=== PATIENT | male | born 1940 | race Caucasian/White ===

== ENCOUNTER 2016-09-17 12:15 | Emergency (ER) | payer MEDICARE, OTHER ==
[2016-09-17 12:29] VITALS: TEMP 98.5; BMI 28.5
[2016-09-17] MEDS ORDERED: BUBBLE GUM ENEMA 480 ML ENEMA PR ONE (14:00)
--- NOTE | 2016-09-17 14:05 | EDPRACDOC ---
- General Information Chief Complaint: Generalized Weakness Stated Complaint: CONSTIPATION Time Seen by Provider: 09/17/16 13:29 Information Source: Patient Mode Of Arrival: Ambulance Home Medications: Home Medications Azithromycin [Zithromax] 0 mg PO DAILY #6 tablet 12/06/13 Hydrocodone Bit/Homatropine [Hycodan Syrup] 5 ml PO Q6 PRN #120 syrup 12/06/13 Allergies/Adverse Reactions: Allergies Allergy/AdvReac Type Severity Reaction Status Date / Time ciprofloxacin [From Cipro] Allergy Unknown Unknown/See Verified 12/06/13 17:26 Comments ciprofloxacin HCl Allergy Unknown Unknown/See Verified 12/06/13 17:26 [From Cipro] Comments BAY Inhibitors Allergy See Verified 12/06/13 17:26 Comments ARB-Angiotensin Receptor Allergy See Verified 12/06/13 17:27 Antagonist Comments - History of Present Illness Onset: 3 days ED Past Medical History - Patient Medical History Cardiac History: Reports: Coronary Artery Disease, Hypertension, Congestive Heart Failure, CABG, Hypercholesterolemia Surgical History: Reports: CABG - Physical Exam Last recorded Vital Signs: Last Vital Signs Temp 98.5 F 09/17/16 12:29 Pulse 80 09/17/16 12:29 Resp 18 09/17/16 12:29 BP 150/78 09/17/16 12:29 Pulse Ox 94 09/17/16 12:29 Oxygen Pulse Oxygen Saturation 94 O2 Device Room Air Oxygen Flow Rate Fraction of Inspired Oxygen ( FIO2) - Departure Instructions: Weakness (General)
--- NOTE | 2016-09-17 14:06 | EDPRACDOC ---
ED Rectal & Constipation Pain - General Information Chief Complaint: Generalized Weakness Information Source: Patient Mode of Arrival:: Ambulance - History of Present Illness Onset: 3 DAYS Symptoms started: Reports: Spontaneous Location: Reports: Rectum Symptoms: Reports: Pain Due To: Reports: Constipation History Of: Reports: Constipation Severity:: Reports: Mild Stool: Reports: Hard Worsens: Reports: Nothing Improves: Reports: Nothing Associated Sign & Symptoms: Reports: None - Other History Other History: PT REPORTS THAT HE'S BEEN CONSTIPATED FOR 3 DAYS. HE TOOK MIRALAX YESTERDAY, BUT IT DID NOT HELP. 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 MOONEY AND DR. CHOPRA. <Silvana Hobbs - Last Filed: 09/17/16 15:15> <Anil Romero - Last Filed: 09/17/16 17:00> - General Information Home Medications: Home Medications Amlodipine [Norvasc] 10 mg PO DAILY 09/17/16 Atorvastatin Calcium [Lipitor] 10 mg PO QHS 09/17/16 Clonazepam 3 mg PO QHS 09/17/16 Fleet Enema 4.5 oz [place] BID #6 enema 09/17/16 Gabapentin 300 mg PO QHS 09/17/16 Peg 3350/Na Sulf,Bicarb,Cl/KCl [Colyte with Flavor Packets] 240 ml PO . PRN 2 Days 09/17/16 Sulfamethoxazole/Trimethoprim [Bactrim Ds Tablet] 1 tab PO BID #20 tab 09/17/16 Allergies/Adverse Reactions: Allergies Allergy/AdvReac Type Severity Reaction Status Date / Time ciprofloxacin [From Cipro] Allergy Unknown Unknown/See Verified 12/06/13 17:26 Comments ciprofloxacin HCl Allergy Unknown Unknown/See Verified 12/06/13 17:26 [From Cipro] Comments BAY Inhibitors Allergy See Verified 12/06/13 17:26 Comments ARB-Angiotensin Receptor Allergy See Verified 12/06/13 17:27 Antagonist Comments NSAIDS (Non-Steroidal Allergy See Verified 09/17/16 14:53 Anti-Inflamma Comments polyethylene glycol 3350 Allergy See Verified 09/17/16 14:53 [From Miralax] Comments - Treatment Prior to ED Arrival Reported Medications/Treatment ADMISSION NURSE COORDINATOR EMS Treatment BLS IV No <Silvana Hobbs - Last Filed: 09/17/16 15:15> - Treatment Prior to ED Arrival Reported Medications/Treatment ADMISSION NURSE COORDINATOR EMS Treatment BLS IV No <Anil Romero - Last Filed: 09/17/16 17:00> ED Past Medical History - Patient Medical History Cardiac History: Reports: Coronary Artery Disease, Hypertension, Congestive Heart Failure, CABG, Hypercholesterolemia Surgical History: Reports: CABG, Other (VALVE REPLACEMENT) - Social Medical History Smoking Status: Never smoker (F) ETOH: None Substance Abuse: None Lives In: Home <Silvana Hobbs - Last Filed: 09/17/16 15:15> EDM Review of Systems - Review of Systems ROS Negative Except as Marked: Yes All systems reviewed and were negative except as marked Gastrointestinal: Constipation <Silvana Hobbs - Last Filed: 09/17/16 15:15> - Physical Exam Constitutional: Alert (Awake), No apparent distress Oriented to: Time, Person, Place Last recorded Vital Signs: Last Vital Signs Temp 98.5 F 09/17/16 12:29 Pulse 80 09/17/16 12:29 Resp 18 09/17/16 12:29 BP 150/78 09/17/16 12:29 Pulse Ox 94 09/17/16 12:29 Oxygen Pulse Oxygen Saturation 94 O2 Device Room Air Oxygen Flow Rate Fraction of Inspired Oxygen ( FIO2) - HEENT Head: Normal ( normocephalic) Eye Exam: Normal (PERRL, EOMI, Sclera white) Oropharynx: Normal (Pharynx:Moist without exudate,Gums-no swelling) ENT EAC: Normal TMJ: Normal Nose: No Symptoms Reported (septum midline) Neck: Normal (FROM, trachea at midline) - Respiratory/Cardiovascular Respiratory: Normal - CTA (BBS clear to auscultation without adventitious sounds ) Cardiovascular: Normal (RRR without murmur, gallop or rub), Systolic murmur - GI Auscultation: Normal (NABS) Palpation: Normal (Soft,No rebound or guarding, non distended) Tenderness: Non tender Mehta's Sign: Negative - Musculoskeletal Back: Normal (Non-Tender) Extremities: Normal (Normal tone, Pulses 2+ No cyanosis or edema, FROM) Musculoskeletal Comment: KYPHOSIS - Integumentary Skin: Normal, Warm, Dry Lymphatics: Normal (no adenopathy) - Neurologic Memory Impaired: Normal Motor Function: Normal (Normal tone, Pulses 2+ No cyanosis or edema, FROM) Cranial Nerve: Normal (CN II-X11 intact sensation, strength 5/5) Cerebellar: Normal Mood Description: Normal Thought: Coherent Perception: Normal <Silvana Hobbs - Last Filed: 09/17/16 15:15> - Physical Exam Last recorded Vital Signs: Last Vital Signs Temp 98.5 F 09/17/16 12:29 Pulse 59 L 09/17/16 14:15 Resp 18 09/17/16 14:15 BP 169/76 09/17/16 14:15 Pulse Ox 96 09/17/16 14:15 Oxygen Pulse Oxygen Saturation 96 O2 Device Room Air Oxygen Flow Rate Fraction of Inspired Oxygen ( FIO2) <Anil Romero - Last Filed: 09/17/16 17:00> - Results 09/17/16 14:40 09/17/16 14:40 - Diagnostic Imaging Abdomen Image interpreted by: Radiologist Multiple air-fluid levels throughout the abdomen without appreciable bowel dilatation. Suspect early ileus or enteritis. Early obstruction is possible but felt to be less likely. No free air apparent. No lung edema or consolidation. <Silvana Hobbs - Last Filed: 09/17/16 15:15> - Results 09/17/16 14:40 09/17/16 14:40 WBC 5.7 xk/uL (3.8-10.8) 09/17/16 14:40 RBC 4.67 xM/uL (4.70-6.10) L 09/17/16 14:40 Hgb 15.0 g/dL (14.0-18.0) 09/17/16 14:40 Hct 44.8 % (42-52) 09/17/16 14:40 MCV 96 fL (80-94) H 09/17/16 14:40 MCH 32.0 pg (27-32) 09/17/16 14:40 MCHC 33.4 g/dl (33-36) 09/17/16 14:40 RDW 13.6 % (11.5-14.5) 09/17/16 14:40 Plt Count 95 xk/uL (130-400) L 09/17/16 14:40 MPV 8.5 fL (7.4-10.4) 09/17/16 14:40 Neut % (Auto) 52.8 % (45-76) 09/17/16 14:40 Lymph % (Auto) 32.1 % (17-44) 09/17/16 14:40 [place] % (Auto) 11.0 % (3-10) H 09/17/16 14:40 Eos % (Auto) 1.9 % (0-5) 09/17/16 14:40 Baso % (Auto) 2.2 % (0-2) H 09/17/16 14:40 Absolute Neuts (auto) 2.96 xk/uL (1.7-8.2) 09/17/16 14:40 Absolute Lymphs (auto) 1.82 xk/uL (0.65-4.75) 09/17/16 14:40 Sodium 139 mEq/L (137-146) 09/17/16 14:40 Potassium 4.4 mEq/L (3.5-5.1) 09/17/16 14:40 Chloride 101 mEq/L (98-107) 09/17/16 14:40 Carbon Dioxide 25 mMOL/L (22-33) 09/17/16 14:40 Anion Gap 17 mEq/L (8-16) H 09/17/16 14:40 BUN 11 MG/DL (9-20) 09/17/16 14:40 Creatinine 1.20 MG/DL (0.66-1.25) 09/17/16 14:40 Estimated GFR (MDRD) 59 mL/min (>=60) L 09/17/16 14:40 Glucose 102 MG/DL (70-99) H 09/17/16 14:40 Calculated Osmolality 267 MOs/Kg (270-290) L 09/17/16 14:40 Calcium 9.0 MG/DL (8.4-10.2) 09/17/16 14:40 Total Bilirubin 0.7 MG/DL (0.2-1.3) 09/17/16 14:40 AST 31 IU/L (17-59) 09/17/16 14:40 ALT 29 IU/L (21-72) 09/17/16 14:40 Alkaline Phosphatase 74 IU/L (50-160) 09/17/16 14:40 Total Protein 8.2 G/DL (6.3-8.2) 09/17/16 14:40 Albumin 4.4 G/DL (3.5-5.0) 09/17/16 14:40 Urine Color Yellow 09/17/16 16:00 Urine Clarity Sl cldy 09/17/16 16:00 Urine pH 6.0 (5.0-8.0) 09/17/16 16:00 Ur Specific [place] 1.005 (1.003-1.035) 09/17/16 16:00 Urine Protein Neg (NEG/TRACE) 09/17/16 16:00 Urine Glucose (UA) Neg (NEGATIVE) 09/17/16 16:00 Urine Ketones Neg (NEGATIVE) 09/17/16 16:00 Urine Occult Blood Neg (NEG/TRACE) 09/17/16 16:00 Urine Nitrite Neg (NEGATIVE) 09/17/16 16:00 Urine Bilirubin Neg (NEGATIVE) 09/17/16 16:00 Urine Urobilinogen <2.0 MG/DL (0-1) 09/17/16 16:00 Ur Leukocyte Esterase 2+ (NEGATIVE) H 09/17/16 16:00 Urine RBC 0-2 (0-2) 09/17/16 16:00 Urine WBC Tntc (0-2) H 09/17/16 16:00 Urine WBC Clumps Present (NONE) H 09/17/16 16:00 Urine Bacteria 1+ (NEG/FEW) H 09/17/16 16:00 Lab Results 09/17/16 09/17/16 09/17/16 16:00 14:40 14:40 WBC 5.7 RBC 4.67 L Hgb 15.0 Hct 44.8 MCV 96 H MCH 32.0 MCHC 33.4 RDW 13.6 Plt Count 95 L MPV 8.5 Neut % (Auto) 52.8 Lymph % (Auto) 32.1 [place] % (Auto) 11.0 H Eos % (Auto) 1.9 Baso % (Auto) 2.2 H Absolute Neuts (auto) 2.96 Absolute Lymphs (auto) 1.82 Sodium 139 Potassium 4.4 Chloride 101 Carbon Dioxide 25 Anion Gap 17 H BUN 11 Creatinine 1.20 Estimated GFR (MDRD) 59 L Glucose 102 H Calculated Osmolality 267 L Calcium 9.0 Total Bilirubin 0.7 AST 31 ALT 29 Alkaline Phosphatase 74 Total Protein 8.2 Albumin 4.4 Urine Color Yellow Urine Clarity Sl cldy Urine pH 6.0 Ur Specific [place] 1.005 Urine Protein Neg Urine Glucose (UA) Neg Urine Ketones Neg Urine Occult Blood Neg Urine Nitrite Neg Urine Bilirubin Neg Urine Urobilinogen <2.0 Ur Leukocyte Esterase 2+ H Urine RBC 0-2 Urine WBC Tntc H Urine WBC Clumps Present H Urine Bacteria 1+ H <Anil Romero - Last Filed: 09/17/16 17:00> <Silvana Hobbs - Last Filed: 09/17/16 15:15> Decision Time to Discharge: 16:28 - Departure Yes I personally saw and evaluated the patient. Disposition: Home Education/Counseling Given To: Patient Education/Counseling Given Regarding: Diagnosis, Treatment, Prognosis, Follow Up <Anil Romero - Last Filed: 09/17/16 17:00> - Departure Condition: Good Final Diagnosis: Attacks of weakness UTI (urinary tract infection) Qualifiers: Urinary tract infection type: acute cystitis Hematuria presence: without hematuria Qualified Code(s): N30.00 - Acute cystitis without hematuria Constipation Qualifiers: Constipation type: other constipation type Qualified Code(s): K59.09 - Other constipation Instructions: Weakness (General), Urinary Tract Infection in Men (ED), Dysuria Referrals: None,No Provider [Primary Care Provider] - One Week Serafin Chopra MD [Staff Physician] - One Week Prescriptions: Fleet Enema 4.5 oz [place] BID #6 enema Peg 3350/Na Sulf,Bicarb,Cl/KCl [Colyte with Flavor Packets] 240 ml PO . PRN 2 Days PRN Reason: Constipation Sulfamethoxazole/Trimethoprim [Bactrim Ds Tablet] 1 tab PO BID #20 tab
--- NOTE | 2016-09-17 14:13 | DIRPT ---
CLINICAL DATA: Three-day history of constipation EXAM: DG ABDOMEN ACUTE W/ 1V CHEST COMPARISON: None. FINDINGS: PA chest: Lungs are clear. Heart size and pulmonary vascularity are normal. No adenopathy. Patient is status post coronary artery bypass grafting. There is an apparent aortic valve replacement as well. Supine and upright abdomen: There is moderate stool in the colon. There is no bowel dilatation. There are scattered air-fluid levels throughout the abdomen. No free air is apparent. There is degenerative change in the lumbar spine. There are multiple apparent phleboliths in the pelvis. IMPRESSION: Multiple air-fluid levels throughout the abdomen without appreciable bowel dilatation. Suspect early ileus or enteritis. Early obstruction is possible but felt to be less likely. No free air apparent. No lung edema or consolidation. Electronically Signed By: Art Collins III, M.D. On: 09/17/2016 14:11
[2016-09-17 14:49] LABS: AUTOMATED BASOPHIL 2.2 % (0-2); AUTOMATED EOSINOPHIL 1.9 % (0-5); AUTOMATED LYMPH 32.1 % (17-44); AUTOMATED NEUTROPHIL 52.8 % (45-76); MPV 8.5 fL (7.4-10.4)
[2016-09-17 14:57] LABS: BLOOD UREA NITROGEN 11 MG/DL (9-20); CALCULATED OSMOLALITY 267 MOs/Kg (270-290); CHLORIDE 101 mEq/L (98-107); GLUCOSE 102 MG/DL (70-99); SODIUM LEVEL 139 mEq/L (137-146); TOTAL PROTEIN 8.2 G/DL (6.3-8.2)
[2016-09-17] MEDS ORDERED: Pharmacy Review for Metformin - IV Contrast Given SCH (15:00)
--- NOTE | 2016-09-17 16:19 | DIRPT ---
CLINICAL DATA: Abdominal pain, constipation EXAM: CT ABDOMEN AND PELVIS WITH CONTRAST TECHNIQUE: Multidetector CT imaging of the abdomen and pelvis was performed using the standard protocol following bolus administration of intravenous contrast. CONTRAST: 100 cc Isovue 370 COMPARISON: 09/17/2016 acute abdominal series FINDINGS: Lower chest: Patient is status post TAVR and coronary bypass. Normal heart size. No pericardial or pleural effusion. Lower thoracic degenerative change noted. Lung bases remain clear. Hepatobiliary: No masses or other significant abnormality. Pancreas: No mass, inflammatory changes, or other significant abnormality. Spleen: Within normal limits in size and appearance. Adrenals/Urinary Tract: No masses identified. No evidence of hydronephrosis. Stomach/Bowel: Exam of the bowel is limited without oral contrast. Negative for bowel obstruction, significant dilatation, or ileus. No abnormal fluid collection, hemorrhage, or abscess. No free air. Vascular/Lymphatic: Abdominal aortic atherosclerosis noted without aneurysm or occlusive process. No retroperitoneal abnormality or hemorrhage. No adenopathy. Reproductive: No mass or other significant abnormality. Other: Bladder wall demonstrates multiple small outpouchings, more on the right, images 76 through 83. Suspect several small bladder diverticula. Musculoskeletal: Diffuse degenerative changes of the spine. Lower lumbar marked facet arthropathy. No acute osseous finding. Grade 1 anterolisthesis of L4 on L5, suspect related to facet arthropathy. Chronic appearing T9 compression fracture. IMPRESSION: No acute intra-abdominal or pelvic finding. Negative for bowel obstruction or free air. Aortoiliac atherosclerosis without aneurysm Suspect numerous small bladder diverticula Other chronic and postoperative findings as above. Electronically Signed By: Juan Alberto Talamantes M.D. On: 09/17/2016 16:17
[2016-09-17 16:23] LABS: LEUKOCYTES/URINE 2+ (NEGATIVE); NITRITE/URINE NEG (NEGATIVE); RBC/URINE 0-2 (0-2); URINE OCCULT BLOOD NEG (NEG/TRACE); WBC/URINE TNTC (0-2)
[2016-09-17] MEDS ORDERED: CEFTRIAXONE 1 GM in D5W 100 ML IV ONE (16:30)
[2016-09-17 17:38] VITALS: BP 177/79; PULSE 63
== END 2016-09-17 17:30 | disposition home or self-care (01) ==
LOC: ED 12:15
DX: K59.00 Constipation, unspecified (principal)
CPT/HCPCS: 36415; 74022; 74177; 80053; 81001; 85025; 96365; 99284; A9270; A9698; J0696; J7060; J3490

== ENCOUNTER 2016-09-29 06:37 | Emergency (ER) | payer MEDICARE, OTHER ==
[2016-09-29 06:37] VITALS: BMI 28.5
[2016-09-29] MEDS ORDERED: MAGNESIUM CITRATE 10 OZ BOTTLE PO ONE (07:25)
[2016-09-29 07:30] VITALS: TEMP 97.9
--- NOTE | 2016-09-29 07:35 | EDPRACDOC ---
- General Information Stated Complaint: CONSTIPATION Time Seen by Provider: 09/29/16 07:25 Information Source: Patient Mode of Arrival: Car Home Medications: Home Medications Amlodipine [Norvasc] 10 mg PO DAILY 09/17/16 Atorvastatin Calcium [Lipitor] 10 mg PO QHS 09/17/16 Clonazepam 3 mg PO QHS 09/17/16 Fleet Enema 4.5 oz [place] BID #6 enema 09/17/16 Gabapentin 300 mg PO QHS 09/17/16 Peg 3350/Na Sulf,Bicarb,Cl/KCl [Colyte with Flavor Packets] 240 ml PO . PRN 2 Days 09/17/16 Sulfamethoxazole/Trimethoprim [Bactrim Ds Tablet] 1 tab PO BID #20 tab 09/17/16 Sulfamethoxazole/Trimethoprim [Bactrim Ds Tablet] 1 tab PO BID #20 tab 09/29/16 Allergies/Adverse Reactions: Allergies Allergy/AdvReac Type Severity Reaction Status Date / Time ciprofloxacin [From Cipro] Allergy Unknown Unknown/See Verified 12/06/13 17:26 Comments ciprofloxacin HCl Allergy Unknown Unknown/See Verified 12/06/13 17:26 [From Cipro] Comments BAY Inhibitors Allergy See Verified 12/06/13 17:26 Comments ARB-Angiotensin Receptor Allergy See Verified 12/06/13 17:27 Antagonist Comments NSAIDS (Non-Steroidal Allergy See Verified 09/17/16 14:53 Anti-Inflamma Comments polyethylene glycol 3350 Allergy See Verified 09/17/16 14:53 [From Miralax] Comments - History of Present Illness HPI: PT PRESENTS WITH CONSTIPATION X 3 WEEKS. PT STATES HE INTERMITTENTLY HAS SMALLER STOOLS. NO CONSISTENT DIAMETER CHANGES. HAS NEVER GIVEN HIMSELF AN ENEMA. PT WAS SEEN IN ED ON Sep FOR SIMILAR COMPLAINT. PT STATES NO PAIN. H/O CELIAC. HAD SOME MIRALAX BEFORE COMING TODAY. COPIOUS FLATUS. HAS GLUTEN FREE DIET. PT'S PCP IS DR LATANYA CRUZ Past Medical History - Patient Medical History Cardiac History: Reports: Coronary Artery Disease, Hypertension, Congestive Heart Failure, CABG, Hypercholesterolemia Psychological History: Denies: Depression Surgical History: Reports: CABG, Other (VALVE REPLACEMENT) - Social Medical History Smoking Status: Never smoker (F) EDM Review of Systems - Review of Systems ROS Negative Except as Marked: Yes All systems reviewed and were negative except as marked Constitutional: No Symptoms Reported Eyes: No Symptoms Reported Throat: No Symptoms Reported Nose: No Symptoms Reported Respiratory: No Symptoms Reported Cardiovascular: No Symptoms Reported Genitourinary: No Symptoms Reported Neurological: No Symptoms Reported Musculoskeletal: No Symptoms Reported Integumentary: No Symptoms Reported - Physical Exam Constitutional: Alert (Awake), No apparent distress Oriented to: Time, Person, Place Last recorded Vital Signs: Oxygen Pulse Oxygen Saturation O2 Device Oxygen Flow Rate Fraction of Inspired Oxygen ( FIO2) - HEENT Head: Normal ( normocephalic) Eye Exam: Normal (PERRL, EOMI, Sclera white) Oropharynx: Normal (Pharynx:Moist without exudate,Gums-no swelling) Nose: No Symptoms Reported (septum midline) Neck: Normal (FROM, trachea at midline) - Respiratory/Cardiovascular Respiratory: Normal - CTA (BBS clear to auscultation without adventitious sounds ) Cardiovascular: Systolic murmur - GI Auscultation: Normal (NABS) Palpation: Normal (Soft,No rebound or guarding, non distended) Tenderness: Non tender Mehta's Sign: Negative Rectal Exam: Normal - Musculoskeletal Back: Normal (Non-Tender) Extremities: Normal (Normal tone, Pulses 2+ No cyanosis or edema, FROM) - Integumentary Skin: Normal, Warm, Dry Lymphatics: Normal (no adenopathy) - Neurologic Memory Impaired: Normal Motor Function: Normal (Normal tone, Pulses 2+ No cyanosis or edema, FROM) Cranial Nerve: Normal (CN II-X11 intact sensation, strength 5/5) Cerebellar: Normal Mood Description: Normal Perception: Normal - Additional Information PT REQUESTED BACTRIM IN CASE HE HAS A UTI. Decision Time to Discharge: 10:56 - Departure Yes I personally saw and evaluated the patient. Disposition: Home Condition: Stable Final Diagnosis: Constipation Qualifiers: Constipation type: unspecified constipation type Qualified Code(s): K59.00 - Constipation, unspecified Instructions: Constipation (ED) Education/Counseling Given To: Patient Education/Counseling Given Regarding: Diagnosis, Treatment Referrals: None,No Provider [Primary Care Provider] - One Week Prescriptions: Sulfamethoxazole/Trimethoprim [Bactrim Ds Tablet] 1 tab PO BID #20 tab Additional Instructions: PSYLLIUM 2 HEAPING TABLESPOONS OR 6 OF THE CAPSULES BID, MIRALAX 3 CAPFULS EACH AFTERNOON.
[2016-09-29] MEDS ORDERED: [UNRECOGNIZED DRUG - OTHER] PO ONE (07:47)
[2016-09-29 10:49] VITALS: BP 151/81; PULSE 66
== END 2016-09-29 10:50 | disposition home or self-care (01) ==
LOC: ED 06:37
DX: K59.00 Constipation, unspecified (principal)
CPT/HCPCS: 99283; A9270; J3490